=== PATIENT | female | born 2000 | race Caucasian/White ===

== ENCOUNTER 2022-07-10 14:55 | Emergency (ER) | payer OTHER | END 2022-07-10 17:05 | disposition home or self-care (01) | LOC: CSHERS 14:55 | DX: F41.0 Panic disorder [episodic paroxysmal anxiety] (principal); F15.20 Other stimulant dependence, uncomplicated; E03.9 Hypothyroidism, unspecified; D64.9 Anemia, unspecified; F17.210 Nicotine dependence, cigarettes, uncomplicated | CPT/HCPCS: 99283 ==